=== PATIENT | male | born 1995 | race African-American/Black ===

== ENCOUNTER 2020-09-01 20:05 | Emergency (ER) | payer OTHER ==
[~2020-09-01] VITALS: Ht 167.6 cm; Wt 72.6 kg
[2020-09-01] MEDS ORDERED: JANUVIA100 MG PO ×2 (20:12→20:13)
[2020-09-01] MEDS ORDERED: LIPITOR10 MG PO (20:13)
[2020-09-01] MEDS ORDERED: AMARYL2 M1 PO (20:13)
[2020-09-01] MEDS ORDERED: DOXYCYCLINE 10100 MG PO (20:53)
[2020-09-01 20:59] VITALS: BP 127/68
== END 2020-09-01 20:58 | disposition home or self-care (01) ==
LOC: ER 20:05
DX: L02.811 Cutaneous abscess of head [any part, except face] (principal); E11.9 Type 2 diabetes mellitus without complications; Z79.899 Other long term (current) drug therapy

== ENCOUNTER 2020-11-29 19:28 | Emergency (ER) | payer OTHER ==
[~2020-11-29] VITALS: Ht 162.6 cm; Wt 72.6 kg
[~2020-11-29 19:28] MED LIST: AMARYL2 M1 PO; DOXYCYCLINE 10100 MG PO; JANUVIA100 MG PO; LIPITOR10 MG PO
[2020-11-29] MEDS ORDERED: NORCO5 PO (20:03)
[2020-11-29] MEDS ORDERED: BACTRIM DS TAB1 EACH PO (20:03)
[2020-11-29 20:32] VITALS: BP 127/79
== END 2020-11-29 20:33 | disposition home or self-care (01) ==
LOC: ER 19:28
DX: L02.412 Cutaneous abscess of left axilla (principal); E11.9 Type 2 diabetes mellitus without complications; Z79.899 Other long term (current) drug therapy

== ENCOUNTER 2021-02-08 17:46 | Emergency (ER) | payer OTHER ==
[~2021-02-08] VITALS: Ht 165.1 cm; Wt 74.8 kg
[~2021-02-08 17:46] MED LIST changes: +BACTRIM DS TAB1 EACH PO; +NORCO5 PO
[2021-02-08 17:59] VITALS: BP 135/82
[2021-02-08] MEDS ORDERED: NORCO5 PO (18:58)
[2021-02-08] MEDS ORDERED: MUPIROCIN15 GM TOP (18:58)
[2021-02-08] MEDS ORDERED: BACTRIM DS TAB1 EACH PO (18:58)
== END 2021-02-08 18:52 | disposition home or self-care (01) ==
LOC: ER 17:46
DX: J32.9 Chronic sinusitis, unspecified (principal); E11.9 Type 2 diabetes mellitus without complications

== ENCOUNTER 2021-05-25 18:30 | Emergency (ER) | payer OTHER ==
[~2021-05-25] VITALS: Ht 167.6 cm; Wt 72.6 kg
[~2021-05-25 18:30] MED LIST changes: +MUPIROCIN15 GM TOP
[2021-05-25 19:20] LABS: BASOPHILS 0.8 % (0.0-2.0); EOSINOPHILS 1.3 % (0.0-3.0); HEMATOCRIT 40.6 % (42.0-52.0); HEMOGLOBIN 13.6 gm/dL (14.0-18.0); LYMPHOCYTES 18.8 % (24.0-44.0); MCH 28.5 pg (26.0-34.0); MCHC 33.6 g/dL (28.0-37.0); MCV 84.7 fL (80.0-100.0); MONOCYTES 10.6 % (1.0-8.0); PLATELET COUNT 270 thou/uL (150-400); POLYS 68.5 % (36.0-66.0); RBC 4.79 mil/uL (4.50-6.00); RDW 12.5 % (10.5-14.5); WBC 13.1 thou/uL (4.0-11.0)
[2021-05-25 19:32] LABS: CALCIUM 9.1 mg/dL (8.5-10.1); CREATININE 1.2 mg/dL (0.7-1.3); POTASSIUM 4.2 mmol/L (3.5-5.1)
[2021-05-25 19:39] LABS: ALBUMIN 3.4 g/dL (3.4-5.0); TOTAL BILIRUBIN 0.6 mg/dL (0.2-1.0); TOTAL PROTEIN 8.2 g/dL (6.4-8.2)
[2021-05-25] MEDS ORDERED: BACTRIM DS TAB1 EAC1 PO (20:59)
[2021-05-25 21:32] VITALS: BP 134/78
== END 2021-05-25 21:50 | disposition home or self-care (01) ==
LOC: ER 18:30
PROVIDERS: Physician Assistant
DX: L02.11 Cutaneous abscess of neck (principal); E11.9 Type 2 diabetes mellitus without complications; Z79.891 Long term (current) use of opiate analgesic; Z79.899 Other long term (current) drug therapy

== ENCOUNTER 2021-07-30 13:46 | Emergency (ER) | payer OTHER ==
[~2021-07-30] VITALS: Ht 167.6 cm; Wt 73.9 kg
[~2021-07-30 13:46] MED LIST changes: +BACTRIM DS TAB1 EAC1 PO
[2021-07-30 15:00] LABS: ABSOLUTE NEUTROPHILS 6.4 thou/uL (1.4-8.2); BASOPHILS 0.6 % (0.0-2.0); HEMATOCRIT 45.4 % (42.0-52.0); HEMOGLOBIN 15.1 gm/dL (14.0-18.0); LYMPHOCYTES 11.8 % (24.0-44.0); MCH 28.7 pg (26.0-34.0); MCHC 33.3 g/dL (28.0-37.0); MCV 86.2 fL (80.0-100.0); MONOCYTES 11.4 % (1.0-8.0); PLATELET COUNT 158 thou/uL (150-400); POLYS 76.2 % (36.0-66.0); RBC 5.26 mil/uL (4.50-6.00); RDW 12.7 % (10.5-14.5); WBC 8.4 thou/uL (4.0-11.0)
[2021-07-30 15:11] LABS: URINE BLOOD 3+ (Negative); URINE COLOR YELLOW; URINE GLUCOSE-RANDOM* 2+ (Negative); URINE KETONES 3+ (Negative); URINE LEUKOCYTES-REFLEX NEGATIVE (Negative); URINE NITRITE-REFLEX NEGATIVE (Negative); URINE PROTEIN (DIPSTICK) 2+ (Negative); URINE SPECIFIC GRAVITY >= 1.030 (1.005-1.035); URINE UROBILINOGEN 0.2 E.U./dl (0.2-1.0)
[2021-07-30 15:17] LABS: ALBUMIN 3.7 g/dL (3.4-5.0); CALCIUM 9.4 mg/dL (8.5-10.1); CREATININE 1.9 mg/dL (0.7-1.3); POTASSIUM 4.5 mmol/L (3.5-5.1); TOTAL BILIRUBIN 0.5 mg/dL (0.2-1.0); TOTAL PROTEIN 8.8 g/dL (6.4-8.2)
[2021-07-30 15:18] LABS: ICTOTEST (BILI CONFIRMATORY) Negative (Negative); URINE BILIRUBIN NEGATIVE (Negative); URINE CLARITY SL HAZY
[2021-07-30 15:19] LABS: SQUAMOUS None Seen /LPF (0-3); URINE WBC-REFLEX 0-5 Rare /HPF (0-5)
[2021-07-30 15:20] LABS: CRYSTALS None Seen /LPF (None Seen); FINE GRANULAR CASTS 0-3 Few /LPF (None Seen); URINE RBC 3-10 Few /HPF (NONE SEEN)
[2021-07-30 16:09] LABS: INR 0.97; PROTIME 10.6 Seconds (10.5-12.1)
[2021-07-30] MEDS ORDERED: ZOFRAN4 MG PO (20:07)
[2021-07-30 20:15] VITALS: BP 122/71
[2021-07-30 21:21] LABS: MAGNESIUM 2.1 mg/dL (1.8-2.4)
[2021-08-01] MEDS ORDERED: JANUVIA100 MG PO (12:36)
[2021-08-01] MEDS ORDERED: LIPITOR40 MG PO (12:36)
[2021-08-01] MEDS ORDERED: LANTUS SUBQ (12:36)
[2021-08-01] MEDS ORDERED: INVOKANA100 MG PO (12:37)
== END 2021-07-30 20:09 | disposition home or self-care (01) ==
LOC: ER 13:46
PROVIDERS: Emergency Medicine; Nurse Practitioner
DX: U07.1 COVID-19 (principal); R11.2 Nausea with vomiting, unspecified; E11.9 Type 2 diabetes mellitus without complications; Z79.891 Long term (current) use of opiate analgesic; Z79.899 Other long term (current) drug therapy; Z79.1 Long term (current) use of non-steroidal anti-inflammatories (NSAID)

== ENCOUNTER 2021-09-09 00:54 | Emergency (ER) | payer OTHER ==
[~2021-09-09] VITALS: Ht 167.6 cm; Wt 64.0 kg
[~2021-09-09 00:54] MED LIST changes: +INVOKANA100 MG PO; +LANTUS SUBQ; +LIPITOR40 MG PO; +PROTONIX40 M2 PO; +ZOFRAN4 MG PO; +ZYVOX600 MG PO
[2021-09-09 01:34] LABS: ABSOLUTE NEUTROPHILS 4.7 thou/uL (1.4-8.2); BASOPHILS 1.3 % (0.0-2.0); EOSINOPHILS 1.4 % (0.0-3.0); HEMATOCRIT 29.2 % (42.0-52.0); HEMOGLOBIN 9.6 gm/dL (14.0-18.0); LYMPHOCYTES 20.4 % (24.0-44.0); MCH 29.4 pg (26.0-34.0); MCHC 32.8 g/dL (28.0-37.0); MCV 89.6 fL (80.0-100.0); MONOCYTES 11.5 % (1.0-8.0); PLATELET COUNT 511 thou/uL (150-400); POLYS 65.4 % (36.0-66.0); RBC 3.26 mil/uL (4.50-6.00); RDW 16.9 % (10.5-14.5); WBC 7.2 thou/uL (4.0-11.0)
[2021-09-09 01:48] LABS: URINE BILIRUBIN NEGATIVE (Negative); URINE BLOOD 1+ (Negative); URINE CLARITY CLEAR; URINE COLOR YELLOW; URINE GLUCOSE-RANDOM* 3+ (Negative); URINE KETONES NEGATIVE (Negative); URINE LEUKOCYTES-REFLEX NEGATIVE (Negative); URINE NITRITE-REFLEX NEGATIVE (Negative); URINE PROTEIN (DIPSTICK) 1+ (Negative); URINE SPECIFIC GRAVITY 1.025 (1.005-1.035); URINE UROBILINOGEN 0.2 E.U./dl (0.2-1.0)
[2021-09-09 01:49] LABS: CALCIUM 9.3 mg/dL (8.5-10.1); CREATININE 2.1 mg/dL (0.7-1.3); POTASSIUM 3.6 mmol/L (3.5-5.1)
[2021-09-09 01:59] LABS: DIRECT BILIRUBIN 0.1 mg/dL (<0.1-0.2); TOTAL BILIRUBIN 0.3 mg/dL (0.2-1.0)
[2021-09-09 02:16] LABS: BACTERIA-REFLEX 1-9 Few /HPF (None Seen); CASTS None Seen /LPF (None Seen); CRYSTALS None Seen /LPF (None Seen); MUCUS 0-3 Light strn/LPF (None Seen); SQUAMOUS 0-3 Few /LPF (0-3); URINE RBC 3-10 Few /HPF (NONE SEEN); URINE WBC-REFLEX 0-5 Rare /HPF (0-5)
[2021-09-09] MEDS ORDERED: CEPHALEXIN500 MG PO (03:56)
[2021-09-09 04:02] VITALS: BP 135/92
--- NOTE | 2021-09-09 13:39 | EKG ---
[place] [address] [facility] [place] [address] ELECTROCARDIOGRAM REPORT Name: POLANCOETRIUS Room #: [facility] Dawit#: [id number] Admission: 09/09/21 Attend Phys: Discharge: 09/09/21 Date of : [birth year] Report #: [id number] [facility] ED Test Date: 2021-09-09 Test Time: 01:26:58 Pat Name: FELICITA GURROLA Department: Room: Gender: [employer]: : 1995 Requested By: Bill Petit Order Number: [id number] MD: Nico Patterson Measurements Intervals [place] Rate: 94 P: 69 WV: 145 QRS: 42 QRSD: 84 T: 34 QT: 346 QTc: 433 Interpretive Statements Sinus rhythm Compared to ECG 08/01/2021 11:44:29 Intraventricular conduction delay no longer present Electronically Signed On 09-09-2021 13:39:07 BUILDING CODE ADMINISTRATOR by Nico Patterson [email or web address] <ELECTRONICALLY SIGNED> By: Nico Patterson MD, [facility] 09/09/21 [id number] Nico Patterson MD, FACC /EPI
== END 2021-09-09 04:34 | disposition home or self-care (01) ==
LOC: ER 00:54
PROVIDERS: Student in an Organized Health Care Education/Training Program
DX: R11.2 Nausea with vomiting, unspecified (principal); Z20.822 Contact with and (suspected) exposure to COVID-19; Z79.899 Other long term (current) drug therapy